=== PATIENT | female | born 1990 | race Caucasian/White ===

== ENCOUNTER 2020-09-16 13:05 | Emergency (ER) | payer OTHER ==
[~2020-09-16] VITALS: Ht 175.3 cm; Wt 95.3 kg
[2020-09-16] MEDS ORDERED: TETRACAINE HCL 0.5% OPHT DROP 2 ML BOTTLE OP ONE (13:45)
[2020-09-16] MEDS ORDERED: FLUORESCEIN SODIUM 1 MG STRIP OP ONE (13:45)
[2020-09-16] MEDS ORDERED: KETOROLAC TROMETHAMINE 60 MG INJ IM ONE (13:45)
[2020-09-16 14:11] LABS: BASOPHILS # (AUTO) 0.1 K/uL (0.0-8.0); BASOPHILS % (AUTO) 0.7 % (0.0-2.0); EOSINOPHILS # (AUTO) 0.5 K/uL (0.0-0.7); EOSINOPHILS % (AUTO) 4.7 % (0.0-7.0); HEMATOCRIT 36.2 % (31.2-41.9); HEMOGLOBIN 11.5 g/dL (10.9-14.3); LYMPHOCYTES # (AUTO) 4.4 K/uL (20.0-40.0); LYMPHOCYTES % (AUTO) 45.8 % (20.5-51.5); MEAN CORPUSCULAR HEMOGLOBIN 24.7 uug (24.7-32.8); MEAN CORPUSCULAR HGB CONC 32 g/dL (32.3-35.6); MEAN CORPUSCULAR VOLUME 77.7 fL (75.5-95.3); MONOCYTES # (AUTO) 0.6 K/uL (2.0-10.0); MONOCYTES % (AUTO) 6.6 % (0.0-11.0); NEUTROPHILS # (AUTO) 4.1 K/uL (1.8-8.9); NEUTROPHILS % (AUTO) 42.2 % (38.5-71.5); PLATELET COUNT (AUTO) 342 K/uL (179-408); RED BLOOD CELL COUNT(AUTO) 4.66 MIL/uL (3.63-4.92); WHITE BLOOD COUNT (AUTO) 9.6 K/uL (3.8-11.8)
[2020-09-16 14:12] LABS: CREATININE 0.7 mg/dL (0.6-1.3); POTASSIUM 3.7 mmol/L (3.5-5.1)
[2020-09-16 14:14] LABS: *URINE HCG, QUAL NEGATIVE (NEGATIVE)
--- NOTE | 2020-09-16 14:18 | NUR ---
PATIENT WAS SEEN BY . URINE SENT TO LAB. EKG DONE. LABS DRAWN. MEDICATION GIVEN.
[2020-09-16 14:20] LABS: *AMPHETAMINE, URINE POSITIVE (NEGATIVE); *CANNABINOID, URINE NEGATIVE (NEGATIVE); *COCCAINE, URINE NEGATIVE (NEGATIVE); *OPIATE, URINE POSITIVE (NEGATIVE); *PHENCYCLIDINE SCREEN,URINE NEGATIVE (NEGATIVE)
[2020-09-16 14:23] LABS: BILIRUBIN,DIRECT 0.1 mg/dL (0.0-0.2); BILIRUBIN,TOTAL 0.3 mg/dL (0.2-1.0); TOTAL PROTEIN, SERUM 7.7 g/dL (6.4-8.2)
[2020-09-16] MEDS ORDERED: ERYT3.5O24 LEFTEYE (15:43)
[2020-09-16] MEDS ORDERED: CEPH500C2 PO (15:43)
--- NOTE | 2020-09-16 15:45 | NUR ---
DR PRATT AT BEDSIDE SPEAKING TO PATIENT ABOUT TEST RESULTS AND PLAN OF CARE.
--- NOTE | 2020-09-16 15:49 | NUR ---
DC, RX AND FOLLOW UP INSTRUCTIONS GIVEN AND EXPLAINED TO PATIENT WHO STATES SHE UNDERSTANDS ALL INSTRUCTIONS
== END 2020-09-16 15:53 | disposition home or self-care (01) ==
LOC: ER 13:05
DX: R60.0 Localized edema (principal); H00.015 Hordeolum externum left lower eyelid; R94.6 Abnormal results of thyroid function studies; R73.03 Prediabetes
CPT/HCPCS: 36415; 80048; 80076; 80307; 83880; 84443; 84703; 85025; 93005; 93970; 96372; 99285; J1885; A4663